=== PATIENT | female | born 1990 | race Caucasian/White ===

== ENCOUNTER 2022-11-24 21:35 | Emergency (ER) | payer OTHER, SELFPAY ==
--- NOTE | ~2022-11-24 | CT_ITS ---
EXAMINATION: CT ABDOMEN AND PELVIS WITH CONTRAST CLINICAL INFORMATION: Upper abdominal pain COMPARISON: None TECHNIQUE: Multidetector volumetric images were obtained from the superior aspect of the liver through the pubic symphysis following administration 85 mL of Omnipaque 350 intravenous contrast. Sagittal and coronal reformatted images were obtained on the technologist's workstation. Oral contrast: No This CT examination was performed using dose optimization techniques as appropriate, variously including the following: *Automated exposure control *Adjustment of mA and/or kV according to patient size (this includes techniques or standardized protocols for targeted exams where dose is matched to indication/reason for exam; i.e. extremities or head) *Use of iterative reconstruction technique DLP: 503 mGy-cm FINDINGS: LUNG BASES: The visualized lung bases are unremarkable. LIVER, GALLBLADDER, AND BILIARY TREE: The liver is normal in size, shape, and attenuation. No focal hepatic lesion or biliary ductal dilatation is present. The gallbladder is contracted with no evidence of radiopaque gallstones, gallbladder wall thickening, or obvious pericholecystic inflammatory changes. PANCREAS: Unremarkable. SPLEEN: Unremarkable. ADRENAL GLANDS: Unremarkable. KIDNEYS AND URETERS: The kidneys are normal in size, shape, and attenuation. No hydronephrosis, hydroureter, or calculi seen. No perinephric stranding. BLADDER: Unremarkable. GASTROINTESTINAL TRACT: The stomach is unremarkable. Normal caliber of the small bowel. There is no obstruction. No colonic wall thickening or inflammatory change. No free air. Trace pelvic free fluid. Normal appendix. ABDOMINAL WALL: No significant hernia is appreciated. LYMPH NODES: Normal. VASCULAR: Unremarkable. PELVIC VISCERA: The uterus and adnexa are unremarkable. OSSEOUS STRUCTURES: Unremarkable. CT/CT abdomen pelvis w IV con IMPRESSION: 1. No acute findings of the abdomen or pelvis. No inflammatory changes. 2. Trace pelvic free fluid is likely physiologic. Fleischner guidelines were followed.
--- NOTE | ~2022-11-24 | XR_ITS ---
EXAMINATION: XR CHEST CLINICAL INFORMATION: Chest pain COMPARISON: None TECHNIQUE: 2 views of the chest were obtained. FINDINGS: Bilateral nipple piercings. The lungs are well expanded. There is no focal consolidation, edema, or effusion. No pneumothorax. The cardiomediastinal silhouette is within normal limits. No acute osseous abnormality. XR/XR chest 2V IMPRESSION: Clear lungs.
[2022-11-24 21:43] VITALS: BP 121/78; PULSE 84; RESP 18; TEMP 36.1; O2SAT 99; BMI 30.2
--- NOTE | 2022-11-24 21:50 | ECG_ITS ---
Test Reason : chest pain Blood Pressure : / mmHG Vent. Rate : 076 BPM Atrial Rate : 076 BPM P-R Int : 138 ms QRS Dur : 078 ms QT Int : 346 ms P-R-T Axes : 049 129 059 degrees QTc Int : 389 ms Normal sinus rhythm Right axis deviation Abnormal ECG No previous ECGs available Referred By: Generic ED Physician Electronically Signed By:DEYVI MESA MD
[2022-11-24 22:09] LABS: MANUAL DIFF FLAG NO
[2022-11-24 22:10] LABS: Basophils Absolute Auto 0.1 X10*3/uL (0.0-0.2); Basophils Percent Auto 0.5 % (0-2); Eosinophils Absolute Auto 0.2 X10*3/uL (0.0-0.4); Eosinophils Percent Auto 1.2 % (0-4); Hematocrit 45.5 % (37.0-47.0); Hemoglobin 15.9 g/dl (12.0-16.0); Imm Gran Abs Auto 0.03 X10*3/uL (0.00-0.03); Imm Gran Pct Auto 0.2 % (0.0-0.4); Lymphocytes Absolute Auto 3.6 X10*3/uL (1.2-4.9); Lymphocytes Percent Auto 27.3 % (20-40); Mean Corpuscular HGB Conc 34.9 g/dl (31.0-35.0); Mean Corpuscular Hemoglobin 33.2 pg (27.0-33.0); Mean Platelet Volume 9.1 fL (9.4-12.3); Monocytes Absolute Auto 0.8 X10*3/uL (0.1-1.2); Monocytes Percent Auto 5.8 % (2-11); Neutrophils Absolute Auto 8.6 x10*3/uL (2.0-8.3); Platelet Count 277 X10*3/uL (160-400); Red Blood Count 4.79 X10*6/uL (4.20-5.50); Red Cell Distribution Width 13.6 % (11.0-16.0); White Blood Count 13.2 X10*3/uL (4.8-10.8)
--- NOTE | 2022-11-24 22:27 | ED.CHESTPAIN ---
HPI - Chest Pain General Chief Complaint: Chest Pain Stated Complaint: Abdominal/ Chest pain Time Seen by Provider: 11/24/22 22:20 Source: patient Limitations: no limitations History of Present Illness HPI narrative: this is a 32-year-old female who complains of pain in her upper abdomen as well as her mid upper chest for about 3 days. The pain waxes and wanes. It is not exertional. She denies any shortness of breath or sweats. She has had some nausea. She denies pain upon taking a deep breath. She denies any dysuria or urinary frequency, denies any pain through to her back. She said yesterday the pain did radiate to her left arm. The patient does use tobacco. She does have history of elevated cholesterol but denies hypertension or diabetes. . She denies any pain or swelling in her lower extremities. Related Data Previous Rx's Medication Instructions Recorded lorazepam 1 mg tablet 1 mg PO TID PRN anxiety #10 tabs 11/25/22 omeprazole 40 mg capsule,delayed 40 mg PO DAILY #14 caps 11/25/22 release ondansetron 4 mg disintegrating 4 mg PO Q6H PRN nausea and 11/25/22 tablet vomiting #8 tabs sucralfate 1 gram tablet 1 g PO Q6H #30 tabs 11/25/22 Allergies Allergy/AdvReac Type Severity Reaction Status Date / Time Penicillins [PCN] Allergy Hives Verified 11/24/22 21:49 Sulfa (Sulfonamide Allergy Hives Verified 11/24/22 21:49 Antibiotics) Tetracyclines Allergy Hives Verified 11/24/22 21:49 Review of Systems Review of Systems: As per [facility] Social History Social History Advance Directives: No Advance Directives Information Provided: Yes Physical Exam Vital Signs: Vital Signs: Last Vital Signs Temp 98.6 F 11/24/22 22:42 Pulse 81 11/24/22 22:42 Resp 18 11/24/22 22:42 BP 131/79 11/24/22 22:42 Pulse Ox 96 11/24/22 22:42 O2 Del Method 11/24/22 22:42 BMI result Body Mass Index 30.2 Const: Other: PERRLA Conj Twilight Mucous membranes moist Throat clear Neck supple Lungs CTA Heart RRR no murmurs rubs or gallops Abd soft, non tender, non distended Extremities no pitting edema Neuro alert and oriented x 3, non focal Medications Administered Discontinued Medications Generic Name Dose Route Start Last Admin Trade Name Julia PRN Reason Stop Dose Admin Al Hydroxide/Mg Hydroxide 30 ml 11/24/22 22:57 11/24/22 23:30 Magnesium Hydrox/Alum Hydrox 30 Ml Oral.Susp PO 11/24/22 22:58 30 ml ONCE ONE Administration Iohexol 85 ml 11/25/22 00:22 11/25/22 00:23 Iohexol 350 Mg/Ml 100 Ml Infus..Btl IV 11/25/22 00:23 85 ml ONCE ONE Administration Lidocaine HCl 15 ml 11/24/22 22:57 11/24/22 23:30 Lidocaine Hcl Viscous 2 % 15 Ml Solution PO 11/24/22 22:58 15 ml ONCE ONE Administration Lorazepam 1 mg 11/24/22 22:57 11/24/22 23:30 Lorazepam 1 Mg Tablet PO 11/24/22 22:58 1 mg ONCE ONE Administration Medical Decision Making Medical Decision Making [facility] Narrative: patient with chest pain which she stated was worse when she got up and had her chest x-ray, also upper abdominal pain, for 2-3 days. Patient primarily has epigastric pain. Chest x-ray and EKG unremarkable. Lipase normal. Initial urinalysis was contaminated but a repeat did not show any evidence of infection. White blood cell count is mildly elevated at 13. The patient was treated with lorazepam, Maalox, lidocaine and only had partial relief of her symptoms. CT scan was performed to take an to rule out perforated viscus or other concerning pathology. Differential Diagnosis Acute coronary syndrome, pericarditis, pneumonia, gastritis, peptic ulcer disease, perforated viscus, pancreatitis, biliary colic. Admission/Observation Consideration of admission/observation: Escalation of care including admission/observation considered Lab Data [facility] Lab Attestation statement: I reviewed the patient's lab results. 11/24/22 22:03 11/24/22 22:03 Labs: Lab Results 11/24/22 11/24/22 11/24/22 Range/Units 22:03 22:03 22:03 WBC 13.2 H (4.8-10.8) X10*3/uL RBC 4.79 (4.20-5.50) X10*6/uL Hgb 15.9 (12.0-16.0) g/dl Hct 45.5 (37.0-47.0) % MCV 95.0 (80.0-98.0) fL MCH 33.2 H (27.0-33.0) pg MCHC 34.9 (31.0-35.0) g/dl RDW 13.6 (11.0-16.0) % Plt Count 277 (160-400) X10*3/uL MPV 9.1 L (9.4-12.3) fL Immature Gran % (Auto) 0.2 (0.0-0.4) % Neut % (Auto) 65.0 (45-73) % Lymph % (Auto) 27.3 (20-40) % Haines % (Auto) 5.8 (2-11) % Eos % (Auto) 1.2 (0-4) % Baso % (Auto) 0.5 (0-2) % Lymph # (Auto) 3.6 (1.2-4.9) X10*3/uL Haines # (Auto) 0.8 (0.1-1.2) X10*3/uL Eos # (Auto) 0.2 (0.0-0.4) X10*3/uL Baso # (Auto) 0.1 (0.0-0.2) X10*3/uL Abs Immat Gran (auto) 0.03 (0.00-0.03) X10*3/uL Absolute Neuts (auto) 8.6 H (2.0-8.3) x10*3/uL Absolute Nucleated RBC 0.000 (0.0-0.012) X10*3/uL Nucleated RBC % (auto) 0.0 (0.0-0.2) /100WBC Sodium 137 (135-145) mmol/L Potassium 3.7 (3.3-5.1) mmol/L Chloride 105 (96-108) mmol/L Carbon Dioxide 25 (22-29) mmol/L Anion Gap 11 L (12-20) BUN 9 (9-16) mg/dL Creatinine 0.81 (0.5-1.4) mg/dL Estim Creat Clear Calc 82.0 Estimated GFR > 60 Random Glucose 102 (60-115) mg/dL Calcium 9.3 (8.4-10.2) mg/dL Total Bilirubin 0.4 (0.0-1.0) mg/dL AST 16 (5-31) U/L ALT 8 (0-31) U/L Alkaline Phosphatase 85 (39-117) U/L Troponin I High Sens < 3.5 (<3.5-17.0) ng/L Total Protein 6.7 (6.5-8.0) g/dL Albumin 4.3 (3.5-5.0) g/dL Lipase 30 (8-78) U/L Urine Color Urine Appearance Urine pH (5.0-9.0) Ur Specific [place] (1.005-1.025) Urine Protein (Neg-Trace) mg/dL Urine Glucose (UA) (Negative) mg/dL Urine Ketones (Negative) mg/dL Urine Blood (Negative) Urine Nitrite (Negative) Ur Leukocyte Esterase (Negative) Urine RBC (0-2) /HPF Urine WBC (0-5) /HPF Ur Squamous Epith Cells (0-2) /HPF Urine Bacteria (None Seen) Hyaline Casts (0-2) /LPF Urine Test (NEGATIVE) Urine Opiates Screen (Not Detect) Urine Fentanyl Screen (Not Detect) Ur Barbiturates Screen (Not Detect) Ur Phencyclidine Scrn (Not Detect) Ur Amphetamines Screen (Not Detect) U Benzodiazepines Scrn (Not Detect) Urine Cocaine Screen (Not Detect) U Marijuana (THC) Screen (Not Detect) 11/24/22 11/24/22 11/24/22 Range/Units 22:34 22:34 22:34 WBC (4.8-10.8) X10*3/uL RBC (4.20-5.50) X10*6/uL Hgb (12.0-16.0) g/dl Hct (37.0-47.0) % MCV (80.0-98.0) fL MCH (27.0-33.0) pg MCHC (31.0-35.0) g/dl RDW (11.0-16.0) % Plt Count (160-400) X10*3/uL MPV (9.4-12.3) fL Immature Gran % (Auto) (0.0-0.4) % Neut % (Auto) (45-73) % Lymph % (Auto) (20-40) % Haines % (Auto) (2-11) % Eos % (Auto) (0-4) % Baso % (Auto) (0-2) % Lymph # (Auto) (1.2-4.9) X10*3/uL Haines # (Auto) (0.1-1.2) X10*3/uL Eos # (Auto) (0.0-0.4) X10*3/uL Baso # (Auto) (0.0-0.2) X10*3/uL Abs Immat Gran (auto) (0.00-0.03) X10*3/uL Absolute Neuts (auto) (2.0-8.3) x10*3/uL Absolute Nucleated RBC (0.0-0.012) X10*3/uL Nucleated RBC % (auto) (0.0-0.2) /100WBC Sodium (135-145) mmol/L Potassium (3.3-5.1) mmol/L Chloride (96-108) mmol/L Carbon Dioxide (22-29) mmol/L Anion Gap (12-20) BUN (9-16) mg/dL Creatinine (0.5-1.4) mg/dL Estim Creat Clear Calc Estimated GFR Random Glucose (60-115) mg/dL Calcium (8.4-10.2) mg/dL Total Bilirubin (0.0-1.0) mg/dL AST (5-31) U/L ALT (0-31) U/L Alkaline Phosphatase (39-117) U/L Troponin I High Sens (<3.5-17.0) ng/L Total Protein (6.5-8.0) g/dL Albumin (3.5-5.0) g/dL Lipase (8-78) U/L Urine Color Yellow Urine Appearance Cloudy Urine pH 6.0 (5.0-9.0) Ur Specific [place] 1.015 (1.005-1.025) Urine Protein Negative (Neg-Trace) mg/dL Urine Glucose (UA) Negative (Negative) mg/dL Urine Ketones Negative (Negative) mg/dL Urine Blood Negative (Negative) Urine Nitrite Negative (Negative) Ur Leukocyte Esterase Large (3+) H (Negative) Urine RBC 0-2 (0-2) /HPF Urine WBC 21-50 H (0-5) /HPF Ur Squamous Epith Cells 11-20 (0-2) /HPF Urine Bacteria 2+ (None Seen) Hyaline Casts 0-2 (0-2) /LPF Urine Test NEGATIVE (NEGATIVE) Urine Opiates Screen Not Detected (Not Detect) Urine Fentanyl Screen Not Detected (Not Detect) Ur Barbiturates Screen Not Detected (Not Detect) Ur Phencyclidine Scrn Not Detected (Not Detect) Ur Amphetamines Screen Not Detected (Not Detect) U Benzodiazepines Scrn Not Detected (Not Detect) Urine Cocaine Screen Not Detected (Not Detect) U Marijuana (THC) Screen Not Detected (Not Detect) 11/25/22 Range/Units 00:11 WBC (4.8-10.8) X10*3/uL RBC (4.20-5.50) X10*6/uL Hgb (12.0-16.0) g/dl Hct (37.0-47.0) % MCV (80.0-98.0) fL MCH (27.0-33.0) pg MCHC (31.0-35.0) g/dl RDW (11.0-16.0) % Plt Count (160-400) X10*3/uL MPV (9.4-12.3) fL Immature Gran % (Auto) (0.0-0.4) % Neut % (Auto) (45-73) % Lymph % (Auto) (20-40) % Haines % (Auto) (2-11) % Eos % (Auto) (0-4) % Baso % (Auto) (0-2) % Lymph # (Auto) (1.2-4.9) X10*3/uL Haines # (Auto) (0.1-1.2) X10*3/uL Eos # (Auto) (0.0-0.4) X10*3/uL Baso # (Auto) (0.0-0.2) X10*3/uL Abs Immat Gran (auto) (0.00-0.03) X10*3/uL Absolute Neuts (auto) (2.0-8.3) x10*3/uL Absolute Nucleated RBC (0.0-0.012) X10*3/uL Nucleated RBC % (auto) (0.0-0.2) /100WBC Sodium (135-145) mmol/L Potassium (3.3-5.1) mmol/L Chloride (96-108) mmol/L Carbon Dioxide (22-29) mmol/L Anion Gap (12-20) BUN (9-16) mg/dL Creatinine (0.5-1.4) mg/dL Estim Creat Clear Calc Estimated GFR Random Glucose (60-115) mg/dL Calcium (8.4-10.2) mg/dL Total Bilirubin (0.0-1.0) mg/dL AST (5-31) U/L ALT (0-31) U/L Alkaline Phosphatase (39-117) U/L Troponin I High Sens (<3.5-17.0) ng/L Total Protein (6.5-8.0) g/dL Albumin (3.5-5.0) g/dL Lipase (8-78) U/L Urine Color Yellow Urine Appearance Clear Urine pH 6.5 (5.0-9.0) Ur Specific [place] <= 1.005 (1.005-1.025) Urine Protein Negative (Neg-Trace) mg/dL Urine Glucose (UA) Negative (Negative) mg/dL Urine Ketones Negative (Negative) mg/dL Urine Blood Negative (Negative) Urine Nitrite Negative (Negative) Ur Leukocyte Esterase Small (1+) H (Negative) Urine RBC 0-2 (0-2) /HPF Urine WBC 0-5 (0-5) /HPF Ur Squamous Epith Cells 0-2 (0-2) /HPF Urine Bacteria None Seen (None Seen) Hyaline Casts 0-2 (0-2) /LPF Urine Test (NEGATIVE) Urine Opiates Screen (Not Detect) Urine Fentanyl Screen (Not Detect) Ur Barbiturates Screen (Not Detect) Ur Phencyclidine Scrn (Not Detect) Ur Amphetamines Screen (Not Detect) U Benzodiazepines Scrn (Not Detect) Urine Cocaine Screen (Not Detect) U Marijuana (THC) Screen (Not Detect) Independent Interpretation I performed an independent interpretation of an: EKG Interpretation: EKG shows normal sinus rhythm with a rate of 76. Delayed R-wave progression. Right axis deviation. Some flattening of the T-waves. No prior EKG available Radiology Impression Discussion of test interpretation with radiology: I have reviewed the radiologist's reading. Radiologist Impression: Chest x-ray: No acute pulmonary disease CT abdomen and pelvis with IV contrast: IMPRESSION: 1.? No acute findings of the abdomen or pelvis. No inflammatory changes. 2.? Trace pelvic free fluid is likely physiologic. Discharge Plan Discharge Clinical Impression: Atypical chest pain, Acute upper abdominal pain Patient Disposition: Home, Self-Care Instructions: Abdominal Pain (ED), Noncardiac Chest Pain (ED) Additional Instructions: follow-up with your primary care physician. Use the omeprazole Carafate, and ondansetron as prescribed. Return for any new or worsened symptoms The CT scan of her abdomen did not show any concerning findings. Your 2nd urinalysis was negative for any evidence of infection. Your chest x-ray, EKG and other labs were normal. Prescriptions: New ondansetron 4 mg tablet,disintegrating 4 mg PO Q6H PRN (Reason: nausea and vomiting) Qty: 8 0RF omeprazole 40 mg capsule,delayed release(DR/EC) 40 mg PO DAILY Qty: 14 0RF sucralfate 1 gram tablet 1 g PO Q6H Qty: 30 0RF lorazepam 1 mg tablet 1 mg PO TID PRN (Reason: anxiety) Qty: 10 0RF
[2022-11-24 22:28] LABS: Alanine Aminotransferase 8 U/L (0-31); Albumin Level 4.3 g/dL (3.5-5.0); Alkaline Phosphatase 85 U/L (39-117); Anion Gap 11 (12-20); Aspartate Amino Transferase 16 U/L (5-31); Bilirubin Total 0.4 mg/dL (0.0-1.0); Blood Urea Nitrogen 9 mg/dL (9-16); Calcium 9.3 mg/dL (8.4-10.2); Carbon Dioxide 25 mmol/L (22-29); Chloride 105 mmol/L (96-108); Estimated Glomerular Filt Rate > 60; Glucose Random 102 mg/dL (60-115); Potassium 3.7 mmol/L (3.3-5.1); Sodium 137 mmol/L (135-145); Total Protein 6.7 g/dL (6.5-8.0)
[2022-11-24 22:37] LABS: Troponin-I High Sensitivity < 3.5 ng/L (<3.5-17.0)
[2022-11-24 22:42] VITALS: BP 131/79; PULSE 81; RESP 18; TEMP 37; O2SAT 96
[2022-11-24 22:45] LABS: Appearance Urine Cloudy; Color Urine Yellow; Glucose Urine UA Negative (Negative); Leukocyte Esterase Urine Large (3+) (Negative); Nitrite Urine Negative (Negative); Specific Gravity - Urine 1.015 (1.005-1.025); UMIC TRIGGER UACC YES; UPreg QC Valid YES; Urine Blood Negative (Negative); Urine Ketones Negative (Negative); Urine Pregnancy NEGATIVE (NEGATIVE); Urine Protein Negative (Neg-Trace)
[2022-11-24 22:49] LABS: Bacteria Urine 2+ (None Seen); Hyaline Casts Urine 0-2 /LPF (0-2); RBC Urine 0-2 /HPF (0-2); UACC Culture Trigger YES; WBC Urine 21-50 /HPF (0-5)
[2022-11-24 22:57] LABS: Amphetamine Screen Urine Not Detected (Not Detect); Barbiturates, Urine Not Detected (Not Detect); Benzodiazepines Screen Urine Not Detected (Not Detect); Cannabinoid Screen Urine Not Detected (Not Detect); Cocaine Screen Urine Not Detected (Not Detect); Fentanyl, urine Not Detected (Not Detect); Opiate Screen Urine Not Detected (Not Detect); Phencyclidine Screen Urine Not Detected (Not Detect)
[2022-11-24] MEDS: Magnesium Hydrox/Alum Hydrox 30 ML ORAL.SUSP PO (23:30)
[2022-11-24] MEDS: LORazepam 1 MG TABLET PO (23:30)
[2022-11-24] MEDS: Lidocaine HCl Viscous 2 % 15 ML SOLUTION PO (23:30)
[2022-11-25 00:17] LABS: Appearance Urine Clear; Color Urine Yellow; Glucose Urine UA Negative (Negative); Leukocyte Esterase Urine Small (1+) (Negative); Nitrite Urine Negative (Negative); PH 6.5 (5.0-9.0); Specific Gravity - Urine <= 1.005 (1.005-1.025); UMIC TRIGGER UACC YES; Urine Blood Negative (Negative); Urine Ketones Negative (Negative); Urine Protein Negative (Neg-Trace)
[2022-11-25] MEDS: iohexoL 350 MG/ML 100 ML INFUS..BTL 85 ML IV (00:23)
[2022-11-25 00:26] LABS: Lipase 30 U/L (8-78)
[2022-11-25 00:28] LABS: Bacteria Urine None Seen (None Seen); Hyaline Casts Urine 0-2 /LPF (0-2); RBC Urine 0-2 /HPF (0-2); Squamous Epithelial Cell Urine 0-2 /HPF (0-2); UACC Culture Trigger YES; WBC Urine 0-5 /HPF (0-5)
== END 2022-11-25 01:33 | disposition home or self-care (01) ==
PROVIDERS: Emergency Provider Emergency Medicine
DX: R07.89 Other chest pain (principal); R10.10 Upper abdominal pain, unspecified; F17.200 Nicotine dependence, unspecified, uncomplicated; Z71.6 Tobacco abuse counseling; Z79.899 Other long term (current) drug therapy
CPT/HCPCS: 36415; 71046; 74177; 80053; 80307; 81001; 81025; 83690; 84484; 85025; 87086; 93005; 99284; Q9967

== ENCOUNTER → 2025-01-09 10:05 | Outpatient (BNVA) | payer OTHER, SELFPAY | PROVIDERS: Visit Provider Physician Assistant | DX: S97.112A Crushing injury of left great toe, initial encounter (principal); S92.415A Nondisplaced fracture of proximal phalanx of left great toe, initial encounter for closed fracture; S90.212A Contusion of left great toe with damage to nail, initial encounter; W22.09XA Striking against other stationary object, initial encounter | CPT/HCPCS: 73660; 99204 ==

== ENCOUNTER → 2025-01-15 08:58 | Outpatient (BNVA) | payer OTHER, SELFPAY | PROVIDERS: Visit Provider Physician Assistant | DX: S97.112A Crushing injury of left great toe, initial encounter (principal); S92.415A Nondisplaced fracture of proximal phalanx of left great toe, initial encounter for closed fracture; S90.212A Contusion of left great toe with damage to nail, initial encounter; W22.09XA Striking against other stationary object, initial encounter | CPT/HCPCS: 99213 ==

== ENCOUNTER → 2025-01-22 11:01 | Outpatient (BNVA) | payer OTHER, SELFPAY | PROVIDERS: Visit Provider Physician Assistant | DX: S97.112A Crushing injury of left great toe, initial encounter (principal); S92.415A Nondisplaced fracture of proximal phalanx of left great toe, initial encounter for closed fracture; S90.212A Contusion of left great toe with damage to nail, initial encounter; W22.09XA Striking against other stationary object, initial encounter | CPT/HCPCS: 99213 ==

== ENCOUNTER → 2025-02-05 10:38 | Outpatient (BNVA) | payer OTHER, SELFPAY | PROVIDERS: Visit Provider Physician Assistant | DX: S92.415D Nondisplaced fracture of proximal phalanx of left great toe, subsequent encounter for fracture with routine healing (principal); S97.112D Crushing injury of left great toe, subsequent encounter; S90.212D Contusion of left great toe with damage to nail, subsequent encounter; W22.09XD Striking against other stationary object, subsequent encounter; Z02.79 Encounter for issue of other medical certificate | CPT/HCPCS: 99213 ==

== ENCOUNTER 2025-09-30 13:12 | Outpatient (AMB) | payer OTHER, SELFPAY ==
[2025-09-30 13:14] VITALS: BMI 36.4
--- NOTE | 2025-09-30 13:14 | A.PHYSOV ---
Vital Signs 09/30/25 13:14 Height 4 ft 11 in Weight 180 lb BMI 36.4 Intake Visit Reasons: Increased back pain Intake Note: Patient is a 35 year old female here for increased back pain. Allergies amoxicillin Allergy (Unknown, Verified 09/30/25 13:17) Unknown Penicillins (PCN) Allergy (Verified 09/30/25 13:17) Hives Sulfa (Sulfonamide Antibiotics) Allergy (Verified 09/30/25 13:17) Hives Tetracyclines Allergy (Verified 09/30/25 13:17) Hives HPI Comments Details: History of Present Illness The patient is a 35 year old individual presenting with lower back pain and toe cramps. The lower back pain has been persistent, with the patient noting that it worsens at night, requiring the use of a heating pad for relief. The patient has been using ibuprofen for pain management, but the relief has been inadequate. She completed a 6 week physician directed home exercise plan focusing on her lumbar spine and denies any relief of her symptoms. She finds that her symptoms limit her ability to perform her activities of daily living. Patient did recently undergo surgery with her psychiatric technician assistant. She has a pain level today of 7/10 in the right-sided low back. Toe cramps have been occurring since the patient underwent foot surgery in April. The patient reports that the foot doctor mentioned the cramping could be related to the back issues. The patient has been performing exercises as recommended but has not experienced significant improvement. Pain Description - Onset: Persistent lower back pain, worsens at night. - Quality: Cramping in toes, possibly related to back issues. - Location: Lower back and toes. - Exacerbating factors: Sitting and driving. - Relieving factors: Heating pad for back pain. [facility] Surgical History H/O hemorrhoidectomy Social History (Updated 09/30/25 @ 13:18 by Meka Aguilera MA) Alcohol intake: current Alcohol intake frequency: does not drink Patient Tobacco Use Status: Current everyday Tobacco user Use of substances other than those prescribed or required for medical reasons: Yes Current occupational status: employed Review of Systems Narrative Review of Systems - Musculoskeletal: Reports lower back pain and toe cramps. - Neurological: Denies claustrophobia. Physical Exam Exam Exam: Physical Exam Lumbar Spine: Examination of her lumbar spine, there is no visible swelling or deformity. She is tender to lower lumbar facets. She is otherwise nontender. Full range of motion of the lumbar spine. She does have an increase in pain with facet loading. Special Tests: Lhermittes sign was negative Heel Toe walk is normal Left straight leg raise: Negative Right straight leg raise: Negative Special tests Amira test is negative Ganslen's test is negative SI Joint compression test negative Tiarra test negative Piriformis stretch is negative Lower Extremities: Full range of motion bilateral lower extremities. No calf pain or edema. Neuro: Sensation: Intact to lower extremities bilaterally Strength L2 (Psoas): 5/5 on the left and 5/5 on the right. L3 (Quads): 5/5 on the left and 5/5 on the right. L4 (Ant tibialis): 5/5 on the left and 5/5 on the right. L5 (EHL) 5/5 on the left and 5/5 on the right. S1 (Gastroc): 5/5 on the left and 5/5 on the right. DTR L4: (Patellar) Left 2 Right 2 S1: (Achilles) Left 2 Right 2 Babinski Downgoing No pathologic clonus. No involuntary movement. Vital Signs: BMI result Body Mass Index 36.4 Assessment & Plan Assessment & Plan (1) Lumbar radiculopathy: Code(s): M54.16 - Radiculopathy, lumbar region Category: Medical (2) Spondylosis: Code(s): M47.9 - Spondylosis, unspecified Category: Medical Plan Pain Management - Affect: Pain is causing significant discomfort, especially at night. - Analgesia: Currently using ibuprofen 800 mg three times a day. - Adverse Effects: No specific adverse effects reported from ibuprofen. - Activities of Daily Living: Pain interferes with sitting and driving. - Aberrant Drug Related Behaviors: None reported. Plan Patient was informed and verbally consented to the use of an ambient scribe for clinic note documentation during this visit. 1. Lower Back Pain An MRI of the lumbar spine will be ordered to assess the underlying cause of the lower back pain. Patient has failed conservative treatment by completing 6 week physician directed home exercise plan and using her medications as prescribed. Follow-up post MRI. The patient will continue using ibuprofen 800 mg three times a day as needed, with a muscle relaxer prescribed for use at night. The patient is advised to use a heating pad for relief and to avoid taking ibuprofen on good days to minimize kidney impact. 2. Toe Cramps The patient is advised to perform foot exercises, such as using a tennis ball for massage and stretching with a towel. The relationship between the toe cramps and back issues will be further evaluated after the MRI results. We discussed the benefits of proper nutrition and exercise to maintain a healthy body weight to improve longevity and function. We also discussed the benefits of proper lifting techniques, core strengthening and proper posture. Thank you for allowing me to participate in the care of your patient. Orders: Orders MR lumbar spine wo con Today M51.16 - Intervertebral disc disorders with radiculopathy, lumbar region Medications: New ibuprofen 800 mg PO TID 90 tabs 0RF 30 days M47.9 - Spondylosis, unspecified, M54.16 - Radiculopathy, lumbar region tizanidine 4 mg PO TID PRN 90 caps 0RF muscle spasticity M54.16 - Radiculopathy, lumbar region, M79.10 - Myalgia, unspecified site Coding Level of Care Code Tele Est Pt Level 4 (60800) Diagnoses Lumbar radiculopathy M54.16 Spondylosis M47.9
--- OUTSIDE RECORDS SUMMARY | 2025-09-30 16:59 | XMS_ITS ---
Author Name [facility] Organization Unknown Care Team Organization Name Specialty Phone Email Start Date End Da te [facility] 09/13/2022 06/24/20 24
== END 2025-09-30 13:50 | disposition home or self-care (01) ==
LOC: HO.HPHYS 13:12
PROVIDERS: PCP Internal Medicine; Visit Provider Physician Assistant
DX: M54.16 Radiculopathy, lumbar region (principal); M47.9 Spondylosis, unspecified
CPT/HCPCS: 99214

== ENCOUNTER 2025-10-07 18:37 | Outpatient (REF) | payer OTHER, SELFPAY ==
--- NOTE | ~2025-10-07 | MR_ITS ---
EXAMINATION: MR LUMBAR SPINE WITHOUT CONTRAST CLINICAL INFORMATION: M 51.16. Intervertebral discs disorders with radiculopathy, lumbar region. COMPARISON: None available. TECHNIQUE: MRI of the lumbar spine was obtained using routine sequences without contrast. FINDINGS: Last rib-bearing vertebra labeled T12. No bone marrow STIR signal abnormality. Multilevel disc desiccation from T11 T12-L1 to and to a lesser extent L4-5. Normal alignment. Conus medullaris ends at superior endplate of L2 with normal signal. T12-L1: Broad-based disc bulging. Facet joint hypertrophy. No central spinal canal or neuroforamina stenosis. L1-2: Broad-based disc bulging. Facet joint hypertrophy. No compression upon neural elements. L2-3: Broad-based disc bulging. Reduced AP diameter of the thecal sac and neuroforamina. No compression upon neural elements. L3-4: Broad-based disc bulging. Facet joint hypertrophy. Reduced AP diameter of the thecal sac and neuroforamina. No compression upon neural elements. L4-5: Broad-based disc bulging. Facet joint hypertrophy. Bilateral neuroforamina stenosis encroaching the L4 exiting nerve root. L5-S1: Broad-based disc bulging. Facet joint hypertrophy. No central spinal canal stenosis. Bilateral neuroforamina narrowing encroaching the L5 exiting nerve roots. No prevertebral compartment hematoma, mass or fluid collection. 9 mm isointense T2 nodule, left adrenal gland. MR/MR lumbar spine wo con IMPRESSION: Mild multilevel thoracolumbar spondylosis pronounced at L4-5 and to a lesser extent L5-S1 encroaching the exiting nerve roots. 9 mm nodule, left adrenal gland. Nonspecific. Statistically may represent adenoma. Electronically signed by: Jerrell Grant MD 10/08/2025 06:53 AM EST
--- OUTSIDE RECORDS SUMMARY | 2025-10-07 18:42 | XMS_ITS | Encounter Summary ---
Author Organization [facility] Address [address] [place] [address] Care Team Providers Care Forestry Aid Name Role Phone Wolfgang Hodges MD Primary Care Provider [phone] Reason for Visit * Reason Onset Date Comments Clarification on work hrs 09/29/2025 Encounter Details Date Type Department Care Team ([facility] st Contact Info) Description 09/29/2025 Telephone Orthopedic Surgery - [place] [address] [phone] Robert Epps, DPM 175 [facility] 250 [place] [address] Social History Tobacco Use Types Packs/Day Years Used Date Smoking Tobacco: Every Day Cigarettes 0.5 15 Last attempted to quit: 01/09/2015 Smokeless Tobacco: Never Alcohol Use Standard Drinks/Week Comments Not Currently 0 (1 standard drink = 0.6 oz pur e alcohol) Housing Instability Answer Date Recorde d Are you worried that in the next 2 months you may not have stable housing? No 10/16/2024 Food Access & Nutrition Answer Date Rec orded Do you have access to a vari ety of food including fruits and vegetables? Yes 10/16/2024 Access to Healthcare Answer Date Record ed Within the last 3 months, ho w many times did you visit the emergency department for your medical care? 1 10/16/2024 Health Literacy Answer Date Recorded How often do you need to hav e someone help you when you read instructions, pamphlets, or other written material from your doctor or pharmacy? Unable to respond 10/16/2024 Caregiver: How often do you need to have someone help you when you read instructions, pamphlets, or other written material from your doctor or pharmacy? Not on file Financial Risk Answer Date Recorded How hard is it for you to pa y for the very basics like food, housing, medical care, and air conditioning / heating? Very hard 10/16/2024 Transportation Answer Date Recorded Has the lack of transportati on kept you from meetings, work, or from getting things needed for daily living? No Has the lack of transportati on kept you from medical appointments or from getting medications? No 10/16/2024 Social Isolation Answer Date Recorded How often do you feel lonely or isolated from th ose around you? Often 10/16/2024 Food Risk Answer Date Recorded Within the past 12 months we worried whether our food would run out before we got money to buy more. Often true Within the past 12 months th e food we bought just didn't last and we didn't have money to get more. Sometimes true 10/16/2024 Dependent Care Answer Date Recorded Do you need help finding or paying for care for your loved ones. For example, child and family counselor or elderly care for an older adult? Yes 10/16/2024 Education Answer Date Recorded Do you think completing more education or training, like finishing a GED, going to college, or learning a trade, would be helpful for you? Unable to respond 10/16/2024 Employment and Income Answer Date Recor ded During the last four weeks, have you been actively looking for work? No 10/16/2024 Living Situation Answer Date Recorded What is your living situation? Unrecognized valu e 10/16/2024 Comments No Sex and Gender Information Value Date Recorded Sex Assigned at Female 04/24/2025 11:45 AM EDT Legal Sex Female 1:27 AM EST Gender Identity Not on file Sexual Orientation Not on file documented as of this encounter Progress Notes * Rut Bal MA - 10/06/2025 11:22 AM EST Spoke to Nusrat she is going to update information 20 hours a week with restricted WB until 10/20/25 and will return to full duty no restritions * Eden Ramirez - 10/06/2025 9:03 AM EST Nusrat calling back from [facility] in regards to new letter that was made for patient. 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 Can be best reached at [phone]. 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 She can be reached @ [phone] . Thanks. documented in this encounter Plan of Treatment Upcoming Encounters Date Type Department Care Team (Late st Contact Info) Description 10/08/2025 1:45 PM EST Office Visit Orthopedic Surgery - [place] [address] [phone] Robert Epps DPM [address] [phone] documented as of this encounter Visit Diagnoses Not on filedocumented in this encounter Additional Health Concerns Assessment Noted Time PHQ-9 Depression Total Score: 17 025 9:51 AM EDT documented as of this encounter Care Teams Forestry Aid Relationship Specialty Start Date End Date Wolfgang Hodges MD [address] [place] [id number] PCP - General Internal Medicine 07/21/15 documented as of this encounter
--- OUTSIDE RECORDS SUMMARY | 2025-10-07 18:42 | XMS_ITS | Clinical Summary ---
Author Organization 175 [facility] Address 175 [place] [address] Phone Care Team Providers Care China Decorator Name Role Phone Wolfgang Hodges MD Primary Care Provider [phone] Allergies Active Allergy Reactions Criticality Noted Date Comments Amoxicillin Swelling Medium 08/06/2024 Penicillins Swelling,Rash Medium 10/03/2006 Sulfa (Sulfonamide Antibiotics) Rash Medium 09/07 Sulfamethoxazole-Trimethoprim Swelling Medium 2010 Tetracyclines 02/10/2009 Medications PARoxetine (PAXIL) 10 mg tablet Take 1 tablet (10 mg total) by mouth 1 (one) time each day in the morning. 4 Active traZODone (DESYREL) 50 mg tablet Take 1 tablet (50 mg total) by mouth at bedtime as needed. 4 Active atorvastatin (LIPITOR) 40 mg tablet Take 1 tablet (40 mg total) by mouth 1 (one) time each day. Route: Take 1 Tablet by mouth daily for 180 days. - Oral Active levothyroxine (SYNTHROID, LEVOTHROID) 175 mcg tablet Route: Take 1 Tablet by mouth daily for 360 days. Take 2 tabs on Monday - OralRoute: Take 1 Tablet by mouth daily for 360 days. Take 2 tabs on Monday - Oral 102 tablet 3 5 Active Additional Information Patient taking differently: 175 mcg oral, Route: Take 1 Tablet by mouth daily for 360 days. Take 2 tabs on Monday - OralRoute: Take 1 Tablet by mouth daily for 360 days. Take 2 tabs on Monday - Oral, Reported on 07/30/2025 nicotine (NICODERM CQ) 14 mg/[address] 1 patch on the skin 1 (one) time each day at the same time. Use this for the first 2 months. 30 patch 1 5 Active nicotine (NICODERM CQ) 7 mg/[address] 1 patch on the skin 1 (one) time each day at the same time. Use this for the third and fourth month 30 patch 1 5 Active Additional Information Patient not taking.Reported on 04/29/2025 albuterol HFA (PROAIR HFA ; PROVENTIL HFA ; VENTOLIN HFA) 90 mcg/actuation inhaler Inhale 2 puffs by mouth every 4 (four) hours if needed for wheezing. 6.7 g 1 5 02/05/20 26 Active Active Problems Problem Noted Date Diagnosed Date Tobacco abuse 04/23/2025 Abdominal pain 08/06/2024 Change in bowel movement 08/06/2024 Tubular adenoma of colon 08/06/2024 Psychophysiological insomnia 03/14/2024 Generalized anxiety disorder 02/01/2024 Helicobacter pylori gastritis 12/22/2023 Pure hypercholesterolemia 06/19/2023 Vulvar lesion 08/28/2019 Overview (08/06/2024): Last Assessment & Plan: I counseled Mike this is suspicious for HSV lesion. In the absence of other lesions, may just be excoriated, but cannot rule out. HSV culture and serologies sent. Will treat presumptively with Valtrex to help shorten course. Encouraged to avoid exposure of partner, soak for comfort. Given induration and mild overlying cellulitis, will also treat with abx. Options limited due to allergies and thus chose doxycycline to be taken BID with food x 10 days. Adenomatous colon polyp 03/21/2019 Overview (08/06/2024): Ascending colon; repeat colonoscopy in 5 years. Migraine without status migrainosus, not intract able 05/22/2017 Panic attack 05/22/2017 Mixed hyperlipidemia 11/22/2016 Hypothyroidism 10/03/2011 Chronic headaches 09/14/2011 Allergic rhinitis 07/06/2009 Resolved Problems Problem Noted Date Diagnosed Date Resolved Date Hammertoe of right foot 02/10/202504/07 Exostosis of toe 02/10/2025 05/02/2025 Encounters Date Type Department Care Team Description 09/29/2025 Telephone Orthopedic Surgery [place] [address] [phone] Robert Epps DPM 09/10/2025 1:45 PM EST Office Visit Orthopedic [place] [address] [phone] Robert Epps DPM Pain in right foot (Primary Dx); Contusion of right lesser toe(s) w/o damage to nail, init; Lumbosacral radiculopathy 07/30/2025 1:30 PM EDT Office Visit Orthopedic Surgery [facility] [address] [phone] Robert Epps DPM Pain in right foot (Primary Dx); Contusion of right great toe without damage to nail, initial encounter from Last 3 Months Immunizations Immunization Administration Dates Next Due DTP 01/18/1993, 9,1988,1987,1988 [id number] (Pentacel) 2mo to less than 5yo 09/20/1989 Hepatitis A Adult (Havrix; V aqta) 19yo and older 04/17/2019,10/16/2018 Hepatitis B Pediatric (Enger ix B; Recombivax HB) to less than 20 yo 06/04/1998,02/17/1998,01/10/1998 Influenza Quadravalent, MDCK , 0.5ml, preservative free (Flucelvax) 6mo and older 09/04/2020,07/27/2018 Influenza trivalent, with preservative (Fluzone; Afluria) 6mo and older 08/16/2016,09/17/2013 MMR, measles mumps and rubel la Live (Priorix; M-M-R II) 12mo and older 01/10/1998,01/13/1992 OPV 01/18/1993, 9,1988,1987 PPD Test 06/11/2001 Td Tetanus diptheria (Tdvax) 7yo and older 06/24/1999 Tdap Tetanus diptheria acell ular pertussis (Boostrix; Adacel) 7yo and older 10/03/2006 Surgical History Surgery Date Site/Laterality Comments TONSILLECTOMY PROCEDURE: HISTORICAL TONSILLECTOMY COLONOSCOPY 12/28/12 PROCEDURE: HISTORICAL COLONOSCOPY; COMMENT: normal to hepatic flexure COLONOSCOPY 03/21/2019 PROCEDURE: HISTORICAL COLONOSCOPY; COMMENT: polyp OTHER SURGICAL HISTORY HEMORRHOID SURGERY x2 Medical History Medical History Date Comments Unspecified asthma(493.90) DX:Un specified asthma(493.90) Varicella without mention of complication 03/1989 DX:Varicella without mention of complication Unspecified delay in development(315.9) DX:Unspecified delay in development(315.9) Expressive language disorder DX: Expressive language disorder Allergic rhinitis DX:Allergic rh initis Adenomatous colon polyp 03/21/2019 DX:Adeno matous colon polyp; COMMENT: Ascending colon; repeat colonoscopy in 5 years. Abdominal pain DX:Abdominal gustabo n Irritable bowel syndrome DX:Irri table bowel syndrome Change in bowel movement DX:Coleman ge in bowel movement Tubular adenoma of colon DX:Tubu lar adenoma of colon Anxiety state DX:Anxiety state Depressive disorder DX:Depressiv e disorder Hyperlipidemia DX:Hyperlipidemi a Asthma 1995 Disease of thyroid gland 2010 Hypothyroidism GERD (gastroesophageal reflux disease) Arthritis Joint pain Family History Medical History Relation Name Comments Breast cancer Aunt 1 maternal Breast cancer Aunt 2 maternal; < 40 Asthma Brother ramon Other: heart condition Brother ramon Asthma Father Ramon Cancer Father Ramon Heart attack Father Ramon Hypertension Father Ramon Kidney disease Father Ramon Liver disease Father Ramon Other: cancer - type unknown Father Ramon Cancer Maternal Grandfather juancarlos Breast cancer Maternal Grandmother mothers mom Diabetes Maternal Grandmother mothers mom Thyroid disease Maternal Grandmother mothers mom Asthma Mother Cristin Diabetes Mother Cristin Stroke Mother Cristin Thyroid disease Mother Cristin Breast cancer Mother's Sister 1 brien Breast cancer Mother's Sister 2 norberto Hypertension Paternal Grandfather marguerite Asthma Paternal Grandmother sabi Dementia Paternal Grandmother sabi Asthma Son 1 Jose Daniel Depression Son 1 Jose Daniel Other: OCD Son 1 Jose Daniel Other: ODD Son 1 Jose Daniel Colon cancer Neg Hx Ovarian cancer Neg Hx Relation Name Status Comments Aunt 1 Aunt 2 Brother ramon Alive 1985 ramon Father Ramon 1959 Maternal Grandfather juancarlos Maternal Grandmother mothers mom Mother Cristin Alive 1967 Mother's Sister 1 brien Mother's Sister 2 norberto Paternal Grandfather marguerite Paternal Grandmother sabi Sister Alive 02/22/2002 1/2 sibling samina Son 1 Jose Daniel Alive Son 2 Alive Social History Tobacco Use Types Packs/Day Years Used Date Smoking Tobacco: Every Day Cigarettes 0.5 15 Last attempted to quit: 01/09/2015 Smokeless Tobacco: Never Tobacco Cessation:Ready to Q uit: Not Asked; Counseling Given: Not Answered Alcohol Use Standard Drinks/Week Comments Not Currently [...] your doctor or pharmacy? Not on file 024 Financial Risk Answer Date Recorded How hard [...] got money to buy more. Often true 024 Within the past 12 months th e food we bought just didn't last and we didn't have money to get more. Sometimes true 10/16/2024 Dependent Care Answer Date Recorded Do you need help finding or paying for care for your loved ones. For example, child nutrition manager or elderly care for an older adult? [...] on file Sexual Orientation Not on file Obstetrics History Para Term AB IAB SAB Ectopic Multiple Livin g Live Births 2 2 1 1 2 Date Outcome GA Total Labor Labor/2nd/3rd Weight Sex Type Anes PTL Shelley A1 A5 Name Clin 2008 Term M Vag-Sp ont 2015 36w0d M Vag-Sp ont Last Filed Vital Signs Vital Sign Reading Time Taken Comments Blood Pressure 112/76 05/02/2025 10:15 AM EDT Pulse 60 05/02/2025 10:15 AM EDT Temperature 36.5 C (97.7 F) 05/02/2025 9:38 AM EDT Respiratory Rate 14 05/02/2025 9:38 AM EDT Oxygen Saturation 99% 05/02/2025 10:15 AM EDT Inhaled Oxygen Concentration - - Weight 82.1 kg (181 lb) 04/29/2025 3:00 PM EDT Height 149.9 cm (4' 11 ) 04/29/2025 3:00 PM EDT Body Mass Index 36.56 04/29/2025 3:00 PM EDT Plan of Treatment Upcoming Encounters Date Type Department Care Team (Late st Contact Info) Description 10/08/2025 1:45 PM EST Office Visit Orthopedic Surgery - [place] 250 175 [facility] [address] [place] [address] Robert Epps, DPM 175 [facility] [address] 250 [place] [address] Health Maintenance Due Date Last Done Comments Pneumococcal Vaccine: Pediatrics (0 to 5 Years) and At-Risk Patients (6 to 49 Years) (1 of 2 - PCV) 2007 HPV Vaccines (1 - 3-dose SCDM series) 2015 COVID-19 Vaccine (2 - Pfizer risk series) 03/13/2021 02/20/2021 Influenza Vaccine (#1) 2025 , 07/27/2018, 08/16/2016, Additional history exists Social Influencers of Health Screening 10/16/2025 10/16/2024 DTaP,Tdap,and Td Vaccines (9 - Td or Tdap) 11/06/2025 11/06/2015, 10/03/2006, 06/24/1999, Additional history exists Colorectal Cancer Screening: Colonoscopy 07/25/2027 07/25/2022 Cholesterol Screening (Lipid Panel) 06/17/2029 06/17/2024, 06/17/2024 Cervical Cancer Screening: HPV 10/16/2029 10/16/2024, 07/27/2020 RSV Immunization Adult Patients (1 - 1-dose 75+ series) 2063 HIB Vaccines Completed 09/20/1989 IPV Vaccines Completed 01/18/1993, 09/06, 09/20/1989, Additional history exists MMR Vaccines Completed 01/10/1998, 01/13/1992 Hepatitis B Vaccines Completed 06/04/1998, 02/17/1998, 01/10/1998 Hepatitis A Vaccines Aged Out 04/17/2019, 10/16/20 18 No longer eligible based on patient's age to complete this topic HIV Screening Completed 12/16/2019 Hepatitis C Screening Completed 12/16/2019 Depression Screening Completed 04/16/2025, 06/17/20 24 Meningococcal ACWY Vaccine Aged Out N o longer eligible based on patient's age to complete this topic Meningococcal B Vaccine Aged Out No l onger eligible based on patient's age to complete this topic RSV Immunization Patients Under 20 months Aged Out No longer eligible based on patient's age to complete this topic Varicella Vaccines Aged Out No longer eligible based on patient's age to complete this topic Procedures Procedure Name Priority Date/Time Associated Diagnosis Comments XR FOOT 3+ VIEWS RIGHT Routine 07/30/2025 2:02 PM EDT Pain in right foot HPV WITH REFLEX GENOTYPE Routine 10/16/2024 4:33 PM EST Encounter for annual routine gynecological examination DEPRESSION SCREENING Routine 06/17/2024 LIPID PANEL Routine 06/17/2024 COLONOSCOPY Routine 07/25/2022 HEPATITIS C SCREENING Routine 12/16/2019 HIV SCREENING Routine 12/16/2019 from Last 3 Months or Most Recently Relevant to Health Maintenance Results * XR Foot 3+ Views Right (07/30/2025 2:02 PM EDT) Anatomical Region Laterality Modality Lower Extremities, Foot Right Computed Radiography Narrative 09/15/2025 9:00 PM EST Right foot 3 views: Insert postop x-ray read. No other fractures or dislocation us Robert Epps DPM IMG XR PROCEDURES Final Res ult * HPV with reflex genotype (10/16/2024 4:33 PM EST) HPV Negative Negative LAB MICROBIOLOGY METHOD 10/18/2024 2:43 PM EST [facility] Brushing/Spatula Cervix uteri structure / Unknown 10/16/2024 4:33 PM EST 10/18/2024 6:41 AM EST Altagracia Ventura CNM LAB MOLECULAR DIAGNOSTICS OR DERABLES Final Result [facility] ([facility] [[email or web address] [address] [place] [address], * Depression Screening (06/17/2024) [facility] Depression Screening ABSTRACTED [facility] Provider HEALTH MAINTENANCE Final Result * (ABNORMAL) Lipid panel (06/17/2024) [facility] LDL/HDL Ratio 8(A) 0 - 4 Triglycerides 195(A) 0 - 150 mg/dL Cholesterol 321(A) 0 - 200 mg/dL HDL 39(A) >=40 mg/dL LDL Cholesterol 243(A) 0 - 0 mg/dL Blood Venous blood specimen / Unknown [facility] Provider LAB BLOOD ORDERABLES Bethanie l Result * Colonoscopy (07/25/2022) [facility] Colonoscopy no interpretation , abstracted Anatomical Region Laterality Modality Other [facility] Provider HEALTH MAINTENANCE Final Result * HIV Screening (12/16/2019) [facility] HIV Screening ABSTRACTED [facility] Provider HEALTH MAINTENANCE Final Result * Hepatitis C Screening (12/16/2019) [facility] Hepatitis C Screening ABSTRACTED [facility] Provider HEALTH MAINTENANCE Final Result from Last 3 Months or Most Recently Relevant to Health Maintenance Insurance [employer] [facility] MEDICA[facility] - [place] Advance Directives * Full Code - Default (Latest Code Status on File) Date Activated Date Inactivated Comments 05/02/2025 7:15 AM 05/02/2025 12:51 PM This is ord er is used when code status has not been discussed with the patient, or code status is otherwise unknown/unconfirmed To update the patient's code status, place a code status order. Do not modify or discontinue any currently active code status orders. Care Teams China Decorator Relationship Specialty Start Date End Date Wolfgang Hodges MD [address] [place] [id number] PCP - General Internal Medicine 07/21/15
== END 2025-10-07 18:38 | disposition home or self-care (01) ==
LOC: HO.MRI 18:37
PROVIDERS: Visit Provider Physician Assistant
DX: M51.16 Intervertebral disc disorders with radiculopathy, lumbar region (principal)
CPT/HCPCS: 72148

== ENCOUNTER → 2025-10-07 18:46 | Outpatient (BNV) | payer OTHER, SELFPAY | PROVIDERS: Visit Provider Radiology Diagnostic Radiology | DX: M51.16 Intervertebral disc disorders with radiculopathy, lumbar region (principal); M47.815 Spondylosis without myelopathy or radiculopathy, thoracolumbar region; E27.9 Disorder of adrenal gland, unspecified | CPT/HCPCS: 72148 ==